=== PATIENT | female | born 1930 | race Caucasian/White ===

== ENCOUNTER → 2017-10-30 | Outpatient (CLI) | payer MEDICARE, BC ==
--- NOTE | 2017-10-30 11:38 | Diagnostic Imaging Report ---
EXAM: DXA BONE DENSITY INDICATIONS: Treated for osteoporosis. COMPARISON: None. FINDINGS: Left femoral neck bone mineral density (BMD) (g/cm2):0.686 Femur T-score (standard deviation relative to young adult mean BMD): -1.5 Femur Z-score (standard deviation relative to age-matched control group):1.1 Lumbar bone mineral density (BMD) (g/cm2):0.983 Lumbar T-score (standard deviation relative to young adult mean BMD): -0.6 Lumbar Z-score (standard deviation relative to age-matched control group):2.3 CONCLUSION: WHO bone mineral classification: Low bone mass (osteopenia). World Health Organization Classification: *The Z-score is provided for informational purposes. The T-score is preferable for clinical decisions. RECOMMENDATIONS: Normal \T\ Osteopenia:Calcium supplementation, daily multiple vitamins, and adequate exercise as preventive measures against osteoporosis. Osteoporosis \T\ Severe Osteoporosis:In addition to the above, pharmacologic therapy. Dictated by: Gumaro Gallego M.D. on 10/30/2017 at 11:40 Electronically approved by: Gumaro Gallego M.D. on 10/30/2017 at 11:40
== END ==
LOC: DX 10:37 → EDBD 11:00
DX: M81.0 Age-related osteoporosis without current pathological fracture (principal)
CPT/HCPCS: 77080

== ENCOUNTER → 2018-08-22 | Outpatient (CLI) | payer MEDICARE, BC ==
--- NOTE | 2018-08-22 13:53 | Diagnostic Imaging Report ---
Exam: Left hip 2 views History: Hip pain Comparison: None. Findings: No acute, displaced fracture or dislocation. Femoral head projects appropriately over the acetabulum. Mild joint space narrowing and marginal osteophytosis. Status post total right hip arthroplasty. Acetabular cup screw protrudes through the right pelvic sidewall. Regional skeletal structures are otherwise intact. Nonaggressive appearing sclerotic focus in the left iliac wing versus bowel contents. Impression: No acute osseous abnormality. 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 Signed by: Dr. Markus Marcelo M.D. on 08/22/2018 1:49 PM
== END ==
LOC: RAD 12:19
DX: M25.552 Pain in left hip (principal)

== ENCOUNTER → 2018-11-26 | Outpatient (CLI) | payer MEDICARE, BC ==
--- NOTE | 2018-11-26 15:57 | Diagnostic Imaging Report ---
EXAM: Cervical spine radiographs-7 views INDICATION: Neck pain. COMPARISON: None FINDINGS: BONES: Minimal retrolisthesis of C5 on C6. C1-C2 alignment is maintained. No acute displaced fractures. Vertebral body heights are preserved. DISCS: Mild degenerative disc changes at C5-C6 and C6-C7 with associated mild bony neural foraminal narrowing. JOINTS: Mild facet degenerative changes at C5-C6 and C6-C7. SOFT TISSUES: No prevertebral soft tissue edema. IMPRESSION: No acute radiographic abnormality. Mild degenerative disc and facet degenerative changes at C5-C6 and C6-C7 with associated mild bony neural foraminal narrowing. Signed by: Dr. Judy Dykes MD on 11/26/2018 3:54 PM
== END ==
LOC: RAD 13:16
DX: M54.2 Cervicalgia (principal)
CPT/HCPCS: 72050

== ENCOUNTER 2019-05-01 16:41 | Inpatient (IN) | payer BC, MEDICARE ==
[~2019-05-01] VITALS: Ht 157.5 cm; Wt 64.0 kg
--- OUTSIDE RECORDS SUMMARY | 2019-05-01 16:43 | XMS REPORT ---
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 Allergies, Adverse Reactions, Alerts This patient has no known allergies or adverse reactions. Medications This patient has no known medications. Results Test Description Test Time Test Comments Text Results Atomic Results Result Comments CERVICAL SPINE 4 OR 5 VIEWS 2018-11-26 15:49:00 [place] [address] Patient Name: SCARLET MATUTE MR #: [id number] : 1930 Age/Sex: 88/F Req #: [id number] Adm Physician: Ordered by: KAREL ALANIS MD Report #: [id number] Location: [facility] Room/Bed: Procedure: [id number] DX/CERVICAL SPINE 4 OR 5 VIEWS Exam Date: 11/26/18 Exam Time: 1410 REPORT STATUS: Signed EXAM: Cervical spine radiographs-7 views INDICATION: Neck pain. COMPARISON: None FINDINGS: BONES: Minimal retrolisthesis of C5 on C6. C1-C2 alignment is maintained. No acute displaced fractures. Vertebral body heights are preserved. DISCS: Mild degenerative disc changes at C5-C6 and C6-C7 with associated mild bony neural foraminal narrowing. JOINTS: Mild facet degenerative changes at C5-C6 and C6-C7. SOFT TISSUES: No prevertebral soft tissue edema. IMPRESSION: No acute radiographic abnormality. Mild degenerative disc and facet degenerative changes at C5-C6 and C6-C7 with associated mild bony neural foraminal narrowing. Signed by: Dr. Román Yu MD on 11/26/2018 3:54 PM Dictated By: ROMÁN YU MD 53 Transcribed By: SHAQUILLE on 11/26/18 COPY TO: KAREL ALANIS MD HIP LEFT 2-3 VW (+/- PELVIS) 2018-08-22 13:47:00 [place] [address] Patient Name: SCARLET MATUTE MR #: [id number] : 1930 Age/Sex: 88/F Req #: [id number] Adm Physician: Ordered by: KAREL ALANIS MD Report #: [id number] Location: [facility] Room/Bed: Procedure: [id number] DX/HIP LEFT 2-3 VW (+/- PELVIS) Exam Date: Exam Time: REPORT STATUS: Signed Exam: Left hip 2 views History: Hip pain Co mparison: None. Findings: No acute, displaced fracture or dislocation. Femoral head projects appropriately over the acetabulum. Mild joint space narrowing and marginal osteophytosis. Status post total right hip arthroplasty. Acetabular cup screw protrudes through the right pelvic sidewall. Regional skeletal structures are otherwise intact. Nonaggressive appearing sclerotic focus in the left iliac wing versus bowel contents. Impression: No acute osseous abnormality. 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 Signed by: Dr. Jamal Sanchez M.D. on 08/22/2018 1:49 PM Dictated By: JAMAL SANCHEZ MD 48 Transcribed By: SHAQUILLE on 08/22/181348 COPY TO: KAREL ALANIS MD BONE DXA DUAL ENERGY [place] [address] Patient Name: SCARLET MATUTE MR #: [id number] : 1930 Age/Sex: 87/F Req #: [id number] Adm Physician: Ordered by: KAREL ALANIS MD Report #: [id number] Location: DX Room/Bed: Procedure: [id number] DX/BONE DXA DUAL ENERGY Exam Date: Exam Time: REPORT STATUS: Signed EXAM: DXA BONE DENSITY INDICATIONS: Treated for osteoporosis. COMPARISON: None. FINDINGS: Left femoral neck bone mineral density (BMD) (g/cm2): 0.686 Femur T-score (standard deviation relative to young adult mean BMD): -1.5 Femur Z-score (standard deviation relative to age-matched control group): 1.1 Lumbar bone mineral density (BMD) (g/cm2): 0.983 Lumbar T-score (standard deviation relative to young adult mean BMD): -0.6 Lumbar Z-score (standard deviation relative to age-matched control group): 2.3 CONCLUSION: WHO bone mineral classification: Low bone mass (osteopenia). World Health Organization Classification: *The Z- score is provided for informational purposes. The T-score is preferable for clinical decisions. RECOMMENDATIONS: Normal T Osteopenia: Calcium supplementation, daily multiple vitamins, and adequate exercise as preventive measures against osteoporosis. Osteoporosis T Severe Osteoporosis: In addition to the above, pharmacologic therapy. Dictated by: Darryl Gallego M.D. on 10/30/2017 at 11:40 Electronically approved by: Darryl Gallego M.D. on 10/30/2017 at 11:40 Dictated By: DARRYL GALLEGO MD 1140 Transcribed By: YAHIR on 10/30/17 1140 COPY TO: KAREL ALANIS MD
[2019-05-01] MEDS ORDERED: SODIUM CHLORIDE 0.9% 500ML 500 ML IV ONE ×2 (18:15→21:24)
[2019-05-01 18:51] LABS: BILIRUBIN,URINE NEGATIVE (NEGATIVE); CLARITY,URINE SL CLOUDY (CLEAR); COLOR,URINE YELLOW (YELLOW); KETONES,URINE NEGATIVE (NEGATIVE); LEUKOCYTE ESTERASE ,URINE NEGATIVE (NEGATIVE); NITRITE,URINE NEGATIVE (NEGATIVE); PROTEIN,URINE DIPSTICK NEGATIVE (NEGATIVE); URINE UROBILINOGEN 0.2 mg/dL (0.2 - 1)
--- NOTE | 2019-05-01 18:51 | Diagnostic Imaging Report ---
Exam: Head CT without contrast History: Fall, balance Comparison studies: None Technique: Axial images were obtained from the skull base to the vertex. Coronal and sagittal images reconstructed from the axial data. Dose modulation, iterative reconstruction, and/or weight based adjustment of the mA/kV was utilized to reduce the radiation dose to as low as reasonably achievable. Radiation dose: Total DLP: 1030 mGy*cm. Estimated effective dose: DLP x 0.015 Intravenous contrast: None Findings: Scalp: No abnormalities. Bones: No fractures, blastic or lytic lesions. Brain sulci: Mildly prominent. Ventricles: Moderate compensatory dilatation. No hydrocephalus. Extra-axial spaces: No masses, no fluid collection. Parenchyma: No mass, acute hemorrhage or acute cortical vascular insults. A few scattered hypodensities in the supratentorial white matter are nonspecific but most compatible with chronic small vessel ischemic changes. Sellar/suprasellar region: No abnormalities. Craniocervical junction: Patent foramen magnum. No Chiari one malformation. Included paranasal sinuses: Clear. Middle ear mastoid cavities: Clear. Incidental findings: Atherosclerotic calcifications in the carotid siphons an in the intradural vertebral arteries. IMPRESSION: No acute abnormalities. Chronic findings: 1. Moderate generalized parenchyma volume loss. 2. Mild microvascular ischemic changes. Signed by: Dr. Markus Villarreal M.D. on 05/01/2019 6:48 PM
--- NOTE | 2019-05-01 18:59 | Diagnostic Imaging Report ---
History: Trauma, fall Comparison studies: Cervical spine CT 11/18/2018. Technique: Axial images were obtained through the cervical region.. Coronal and sagittal images reconstructed from the axial data.. Intravenous contrast: None Findings: Fractures: None. Soft tissue injuries: None. Atlantoaxial articulation: Intact. Alignment: Straightening of the usual cervical lordosis. No subluxations. Cervicomedullary junction: No abnormalities. The foramen magnum is patent. Soft tissues: No gross acute abnormalities. Vertebrae: No fractures, infection or neoplasm. Degenerative changes: Moderately degenerated C5-C6 and C6-C7 discs. Calcified central disc protrusion at C4-C5 and disc osteophyte complex at C5-C6 result in mild canal stenosis. Moderate canal stenosis at C6-C7 due to a disc osteophyte complex and ossified posterior longitudinal ligament. Advanced multilevel facet arthrosis. Multilevel uncovertebral facet arthrosis result in multilevel foraminal stenosis which is mild bilaterally at C2-C3, moderate right and mild left at C3-C4, mild bilaterally at C4-C5, and moderate bilaterally at C5-C6 and at C6-C7. IMPRESSION: 1. No acute cervical spine abnormalities. 2. Multilevel degenerative changes as described. Ligament, spinal cord and or vascular abnormalities cannot be excluded on the basis of this examination. Signed by: Dr. Markus Villarreal M.D. on 05/01/2019 6:56 PM
--- NOTE | 2019-05-01 19:07 | Diagnostic Imaging Report ---
Left hip with AP pelvis 3 - views HISTORY: Pain status post fall. COMPARISON: 08/22/2018. FINDINGS: Redemonstration of status post total right hip arthroplasty with bipolar prosthesis in adequate positioning without evidence of loosening. No acute displaced fracture. Degenerative changes of the abdomen lower lumbar spine. Soft tissue calcifications in the lateral left pelvis. IMPRESSION: No acute displaced fracture. Signed by: Dr. Etelvina Babin M.D. on 05/01/2019 7:04 PM
--- NOTE | 2019-05-01 19:09 | Diagnostic Imaging Report ---
EXAMINATION: CHEST SINGLE (NOT PORTABLE) INDICATION: Fall. COMPARISON: None FINDINGS: TUBES and LINES: None. LUNGS: Lungs are well inflated. Lungs are clear. There is no evidence of pneumonia or pulmonary edema. PLEURA: No pleural effusion or pneumothorax. HEART AND MEDIASTINUM: The cardiomediastinal silhouette is unremarkable. There are atherosclerotic calcifications within the aorta. BONES AND SOFT TISSUES: No acute osseous lesion. Soft tissues are unremarkable. UPPER ABDOMEN: No free air under the diaphragm. IMPRESSION: No acute thoracic abnormality. Signed by: Dr. Etelvina Babin M.D. on 05/01/2019 7:06 PM
[2019-05-01 19:28] LABS: BASOPHILS # (AUTO) 0.1 (0.0-0.1); BASOPHILS % 0.7 % (0.0-1.0); EOSINOPHILS # (AUTO) 0.2 (0.0-0.4); EOSINOPHILS % 2.5 % (0.0-6.0); HEMATOCRIT 43.2 % (34.2-44.1); HEMOGLOBIN 14.9 g/dL (12.0-16.0); LYMPHOCYTES # (AUTO) 2.2 (1.0-3.2); LYMPHOCYTES % 32.7 % (18.0-39.1); MEAN CORPUSCULAR HEMOGLOBIN 32.6 pg (28-32); MEAN CORPUSCULAR HGB CONC 34.5 g/dL (31-35); MEAN CORPUSCULAR VOLUME 94.5 fL (81-99); MONOCYTES # (AUTO) 0.8 (0.2-0.8); MONOCYTES % 12.1 % (4.4-11.3); NEUTROPHILS # (AUTO) 3.5 (2.1-6.9); NEUTROPHILS % 51.6 % (38.7-80.0); PLATELET COUNT 230 x10e3/uL (140-360); RED BLOOD COUNT 4.57 x10e6/uL (3.6-5.1); RED CELL DISTRIBUTION WIDTH 12.3 % (11.7-14.4)
[2019-05-01 19:41] LABS: INR 0.96; PARTIAL THROMBOPLASTIN TIME 24.2 seconds (23.8-35.5); PROTHROMBIN TIME 13.3 seconds (11.9-14.5)
[2019-05-01 19:47] LABS: AMORPHOUS SEDIMENT,URINE MODERATE (FEW); BACTERIA,URINE MODERATE /HPF; EPITHELIAL CELLS,URINE FEW /LPF
[2019-05-01 19:50] LABS: ALANINE AMINOTRANSFERASE 28 IU/L (0-55); ALBUMIN 3.7 g/dL (3.5-5.0); ALBUMIN/GLOBULIN RATIO 1.1 (0.8-2.0); ALKALINE PHOSPHATASE 34 IU/L (40-150); BLOOD UREA NITROGEN 19 mg/dL (7-26); BUN/CREATININE RATIO 25 (6-25); CALCIUM 10.8 mg/dL (8.4-10.2); CARBON DIOXIDE 24 mmol/L (22-29); CHLORIDE 98 mmol/L (98-107); CREATINE KINASE 53 IU/L (29-168); CREATININE, SERUM 0.77 mg/dL (0.57-1.11); EST GLOMERULAR FILTRATION RATE > 60 ML/MIN (60-); GLUCOSE 151 mg/dL (74-118); MAGNESIUM 1.7 MG/DL (1.3-2.1); SODIUM 137 mmol/L (136-145)
[2019-05-01 19:56] VITALS: BP 120/53
[2019-05-01 20:12] LABS: ERYTHROCYTE SEDIMENTATION RATE 21 mm/hr (0-20)
[2019-05-01] MEDS ORDERED: POTASSIUM CHLORIDE 20 MEQ TAB CR PO ONE (20:15)
[2019-05-01 22:37] VITALS: BP 141/68
--- NOTE | 2019-05-01 22:40 | NUR ---
Patient received via stretcher accompanied by daughter. Patient is AAO x 3. Patient had no complaints of pain. Respirations even and non-labored. Admission history obtained. Initial physical assessment performed. Fall precautions implemented. Patient instructed to call for assistance when needed. Call light within reach.
[2019-05-01 22:45] VITALS: BP 141/68
[2019-05-01 23:00] VITALS: BP 141/68
[2019-05-02] VITALS (7 sets, daily range): BP systolic 134–152; BP diastolic 67–79
--- NOTE | 2019-05-02 00:05 | NUR ---
Patient complained about pain to her left hip (01/08). Dr. Patel Klein notified. New order received for Tylenol 650 mg Q4H PRN.
[2019-05-02] MEDS ORDERED: GLUCOSAMINE1000 MG PO (00:28)
[2019-05-02] MEDS ORDERED: BIOTIN800 MCG PO (00:28)
[2019-05-02] MEDS ORDERED: VITAMIN D1000 UNI1 PO (00:28)
[2019-05-02] MEDS ORDERED: CYMBALTA30 MG PO (00:28)
[2019-05-02] MEDS ORDERED: B COMPLEX1 EACH (00:28)
[2019-05-02] MEDS ORDERED: CALCIUM CARBON500 MG PO (00:28)
[2019-05-02] MEDS ORDERED: HYDROCHLOROTHIA25 MG PO (00:28)
[2019-05-02] MEDS ORDERED: IBANDRONATE SO150 MG PO (00:28)
[2019-05-02] MEDS ORDERED: LORATADINE10 MG PO (00:28)
[2019-05-02] MEDS ORDERED: AMLODIPINE BESYL5 MG PO (00:28)
[2019-05-02] MEDS: ACETAMINOPHEN 325 MG TAB PO PRN ×2 (00:49→20:48)
[2019-05-02 02:49] LABS: CREATINE KINASE MB 1.1 ng/mL (0-5.0)
[2019-05-02 05:54] LABS: ALANINE AMINOTRANSFERASE 23 IU/L (0-55); ALBUMIN/GLOBULIN RATIO 1.1 (0.8-2.0); ALKALINE PHOSPHATASE 27 IU/L (40-150); ANION GAP 11.5 mmol/L (8-16); BLOOD UREA NITROGEN 17 mg/dL (7-26); BUN/CREATININE RATIO 25 (6-25); CALCIUM 9.3 mg/dL (8.4-10.2); CARBON DIOXIDE 26 mmol/L (22-29); CHLORIDE 106 mmol/L (98-107); CREATININE, SERUM 0.68 mg/dL (0.57-1.11); EST GLOMERULAR FILTRATION RATE > 60 ML/MIN (60-); GLUCOSE 132 mg/dL (74-118); POTASSIUM 3.5 mmol/L (3.5-5.1); SODIUM 140 mmol/L (136-145)
[2019-05-02] MEDS ORDERED: MINERAL OIL/PETROLAT/GLYCERI 6OZ BTL TOP PRN (09:15)
--- NOTE | 2019-05-02 12:39 | Diagnostic Imaging Report ---
EXAMINATION: MRI of the lumbar spine without contrast HISTORY: Low back pain, weakness, difficulty walking, worsening low back pain and sciatica for the last week COMPARISON: None available TECHNIQUE: Sagittal T1, T2, STIR; axial T2 and proton density. FINDINGS: It is assumed that there are 5 lumbar vertebrae. Curvature/Alignment: Right-sided curvature centered at L3-L4. Reversal of the lumbar lordosis. Grade 1 retrolisthesis at L2-L3 and L3-L4. Right lateral spondylolisthesis at L3-L4. Vertebrae: No evidence of recent fracture, infection, or neoplasm. Chronic endplate degenerative changes mainly at L5-S1. Conus: Normal, terminating at L1-L2 Cauda equina: Unremarkable. Lower thoracic: Unremarkable. Paraspinal soft tissues: Moderate to severe paraspinal musculature atrophy Degenerative changes: L1-L2: Decreased disc height and T2 signal intensity. No stenoses. L2-L3: Decreased disc height and T2 signal intensity, asymmetric right disc bulge. No stenoses. L3-L4: Symmetric disc bulge and superimposed 8 mm AP diameter inferiorly migrated left subarticular disc extrusion which is effacing the left lateral recess and likely compressing the traversing left L4 nerve root. Bilateral facet arthrosis. Mild foraminal stenosis on the left. L4-L5: Asymmetric right disc bulge, right marginal lateral endplate osteophytes and bilateral facet arthrosis. Mild canal and right foraminal narrowing. L5-S1: Decreased disc height and T2 signal intensity, marginal endplate osteophytes and bilateral facet arthrosis. Moderate right and mild left foraminal stenoses. IMPRESSION: 1. Left subarticular inferiorly migrated disc herniation at L3-L4 may be compressing the traversing left L4 nerve root. 2. Mild degenerative foraminal stenosis on the left at L3-L4, on the right at L4-L5 and moderate on the right at L5-S1. 3. Lumbar dextroscoliosis with apex at L3-L4 and grade 1 retrolisthesis at this same level. Signed by: Dr. Micaela Celeste M.D. on 05/02/2019 12:35 PM
--- NOTE | 2019-05-02 13:56 | NUR ---
consult called to Dr. Wilhelm spoke to Tia
[2019-05-02 14:48] LABS: CREATINE KINASE MB 1.2 ng/mL (0-5.0)
--- NOTE | 2019-05-02 16:55 | Consultation ---
DATE OF CONSULTATION: 05/01/2019 REASON FOR CONSULTATION: Severe left leg pain and inability to ambulate. HISTORY OF PRESENT ILLNESS: The patient is an 88-year-old, healthy and energetic woman without any significant past medical history, who presents with a 2-year history of low back and intermittent leg pain, who has become intolerable over the past month. The patient is no longer able to ambulate except by heavily relying on a walker. She feels that her brain is not communicating with her left leg and states that she cannot move it adequately. The pain radiates down the left leg to the knee. Her knee has buckled and she has followed on one occasion. PHYSICAL EXAMINATION: On examination, the patient is comfortable and lying supine, but develops pain with sitting and standing. She can only take one step with assistance. Sensation to light touch and pinprick is altered over the left knee. Deep tendon reflexes are absent in both Achilles and patellar tendons. Plantar responses are flexor. There is significant weakness of the left quadriceps and hip flexors on the left. IMAGING STUDIES: MRI of the lumbar spine reveals a large left L3-L4 disk herniation with inferior migration of the extruded disk fragment into the left L4 lateral recess. This produces a severe left L4 radiculopathy. I recommend left L3-L4 laminotomy, medial facetectomy, and microsurgical diskectomy. The risks of infection, bleeding, nerve root injury, CSF leakage, persistent or worsening pain, weakness and numbness, and the possibility of recurrent disk herniation were explained to the patient and her two daughters. Informed consent was obtained for surgery. We planned to proceed with surgery on Sunday afternoon. Riley Wilhelm MD PP/MODL /[id number]
[2019-05-02] MEDS: LORATADINE 10 MG TAB PO SCH (20:48)
[2019-05-03] VITALS (8 sets, daily range): BP systolic 134–163; BP diastolic 59–75
[2019-05-03] MEDS: AMLODIPINE BESYLATE 5 MG TAB PO SCH (09:57)
[2019-05-03] MEDS: DULOXETINE HCL 30 MG DELAYED RELEASE PO SCH (09:57)
[2019-05-03] MEDS: HYDROCHLOROTHIAZIDE 25 MG TAB PO SCH (09:57)
[2019-05-03] MEDS: ACETAMINOPHEN 325 MG TAB PO PRN (10:26)
[2019-05-03 15:23] LABS: ANION GAP 12.9 mmol/L (8-16); BLOOD UREA NITROGEN 18 mg/dL (7-26); BUN/CREATININE RATIO 24 (6-25); CALCIUM 9.5 mg/dL (8.4-10.2); CARBON DIOXIDE 28 mmol/L (22-29); CHLORIDE 100 mmol/L (98-107); CREATININE, SERUM 0.76 mg/dL (0.57-1.11); EST GLOMERULAR FILTRATION RATE > 60 ML/MIN (60-); GLUCOSE 219 mg/dL (74-118); POTASSIUM 3.9 mmol/L (3.5-5.1); SODIUM 137 mmol/L (136-145)
[2019-05-03] MEDS: CEFTRIAXONE SOD 1 GM/NS 50 ML 50 ML IV SCH (15:56)
[2019-05-03] MEDS ORDERED: ACETAMINOPHEN 325 MG TAB PO SCH (19:00)
[2019-05-03] MEDS: LORATADINE 10 MG TAB PO SCH (21:06)
[2019-05-04] VITALS (8 sets, daily range): BP systolic 147–163; BP diastolic 70–83
[2019-05-04] MEDS: CEFTRIAXONE SOD 1 GM/NS 50 ML 50 ML IV SCH ×2 (01:35→14:57)
[2019-05-04 05:35] LABS: BASOPHILS # (AUTO) 0.1 (0.0-0.1); BASOPHILS % 0.8 % (0.0-1.0); EOSINOPHILS # (AUTO) 0.3 (0.0-0.4); HEMATOCRIT 39.9 % (34.2-44.1); HEMOGLOBIN 13.8 g/dL (12.0-16.0); LYMPHOCYTES # (AUTO) 2.3 (1.0-3.2); LYMPHOCYTES % 36.4 % (18.0-39.1); MEAN CORPUSCULAR HEMOGLOBIN 33.1 pg (28-32); MEAN CORPUSCULAR HGB CONC 34.6 g/dL (31-35); MEAN CORPUSCULAR VOLUME 95.7 fL (81-99); MONOCYTES # (AUTO) 0.6 (0.2-0.8); NEUTROPHILS # (AUTO) 3.1 (2.1-6.9); NEUTROPHILS % 48.5 % (38.7-80.0); PLATELET COUNT 226 x10e3/uL (140-360); RED BLOOD COUNT 4.17 x10e6/uL (3.6-5.1); RED CELL DISTRIBUTION WIDTH 12.5 % (11.7-14.4)
[2019-05-04 06:06] LABS: ANION GAP 12.2 mmol/L (8-16); BLOOD UREA NITROGEN 14 mg/dL (7-26); BUN/CREATININE RATIO 24 (6-25); CARBON DIOXIDE 25 mmol/L (22-29); CHLORIDE 104 mmol/L (98-107); CREATININE, SERUM 0.58 mg/dL (0.57-1.11); EST GLOMERULAR FILTRATION RATE > 60 ML/MIN (60-); GLUCOSE 116 mg/dL (74-118); POTASSIUM 3.2 mmol/L (3.5-5.1); SODIUM 138 mmol/L (136-145)
[2019-05-04] MEDS: HYDROCHLOROTHIAZIDE 25 MG TAB PO SCH (08:28)
[2019-05-04] MEDS: AMLODIPINE BESYLATE 5 MG TAB PO SCH (08:28)
[2019-05-04] MEDS: DULOXETINE HCL 30 MG DELAYED RELEASE PO SCH (08:28)
[2019-05-04] MEDS ORDERED: POTASSIUM CHLORIDE 10MEQ EA PO NR ×2 (10:15→12:15)
[2019-05-04] MEDS ORDERED: POTASSIUM CHLORIDE 20 MEQ TAB CR PO NR ×3 (15:45→19:30)
[2019-05-04] MEDS: ACETAMINOPHEN 325 MG TAB PO SCH (20:00)
[2019-05-04] MEDS: LORATADINE 10 MG TAB PO SCH (21:11)
--- NOTE | 2019-05-04 21:12 | NUR ---
Given 40 meq of K PO @ 2030 today.
[2019-05-05] VITALS (9 sets, daily range): BP systolic 139–164; BP diastolic 67–74
[2019-05-05] MEDS: CEFTRIAXONE SOD 1 GM/NS 50 ML 50 ML IV SCH ×3 (03:45→15:35)
[2019-05-05 05:55] LABS: BASOPHILS # (AUTO) 0.1 (0.0-0.1); BASOPHILS % 1.1 % (0.0-1.0); EOSINOPHILS # (AUTO) 0.3 (0.0-0.4); EOSINOPHILS % 4.5 % (0.0-6.0); HEMATOCRIT 41.1 % (34.2-44.1); HEMOGLOBIN 13.5 g/dL (12.0-16.0); LYMPHOCYTES # (AUTO) 2.4 (1.0-3.2); LYMPHOCYTES % 36.8 % (18.0-39.1); MEAN CORPUSCULAR HGB CONC 32.8 g/dL (31-35); MEAN CORPUSCULAR VOLUME 97.4 fL (81-99); MONOCYTES # (AUTO) 0.7 (0.2-0.8); MONOCYTES % 11.1 % (4.4-11.3); PLATELET COUNT 223 x10e3/uL (140-360); RED BLOOD COUNT 4.22 x10e6/uL (3.6-5.1); RED CELL DISTRIBUTION WIDTH 12.6 % (11.7-14.4)
[2019-05-05 06:05] LABS: INR 0.98; PROTHROMBIN TIME 13.5 seconds (11.9-14.5)
[2019-05-05 06:06] LABS: PARTIAL THROMBOPLASTIN TIME 24.3 seconds (23.8-35.5)
[2019-05-05 06:14] LABS: ALANINE AMINOTRANSFERASE 21 IU/L (0-55); ALBUMIN 3.2 g/dL (3.5-5.0); ALKALINE PHOSPHATASE 27 IU/L (40-150); ANION GAP 14.2 mmol/L (8-16); BLOOD UREA NITROGEN 15 mg/dL (7-26); BUN/CREATININE RATIO 24 (6-25); CARBON DIOXIDE 22 mmol/L (22-29); CHLORIDE 110 mmol/L (98-107); CREATININE, SERUM 0.62 mg/dL (0.57-1.11); EST GLOMERULAR FILTRATION RATE > 60 ML/MIN (60-); GLUCOSE 133 mg/dL (74-118); POTASSIUM 4.2 mmol/L (3.5-5.1); SODIUM 142 mmol/L (136-145)
--- NOTE | 2019-05-05 07:00 | NUR ---
BEDSIDE SHIFT REPORT RECEIVED FROM THE ETYMOLOGY PROFESSOR RN. EDUCATED PT ABOUT FALL PRECAUTIONS. BED IS LOW AND LOCKED. SIDE RAILS X2. CALL LIGHT WITH IN EASY REACH. BED ALARM IS ON. INSTRUCTED PT TO USE CALL LIGHT FOR ANY NEEDS. PT VERBALIZED UNDERSTANDING. PT DENIES NEEDS AT THIS TIME.
--- NOTE | 2019-05-05 08:00 | NUR ---
PT IS ON NPO. DAUGHTER AT BEDSIDE. PT DENIES NEEDS AT THIS TIME.
[2019-05-05] MEDS: HYDROCHLOROTHIAZIDE 25 MG TAB PO SCH (09:00)
[2019-05-05] MEDS: AMLODIPINE BESYLATE 5 MG TAB PO SCH (09:00)
[2019-05-05] MEDS: DULOXETINE HCL 30 MG DELAYED RELEASE PO SCH (09:00)
[2019-05-05] MEDS ORDERED: POTASSIUM CHLORIDE 20MEQ/100ML 100 ML IV ONE (11:00)
[2019-05-05] MEDS ORDERED: THROMBIN FOR SOLN 5,000 UNIT VIAL ONE (11:49)
[2019-05-05] MEDS ORDERED: BUPIVACAINE 0.5%/EPI 30 ML SDV INJ ONE (11:49)
[2019-05-05] MEDS ORDERED: BACITRACIN 50,000 UNIT VIAL ONE (11:49)
[2019-05-05] MEDS ORDERED: SODIUM CHLORIDE 0.9% 250ML 250 ML ONE (11:55)
[2019-05-05] MEDS ORDERED: LIDOCAINE HCL (LTA) 4 ML SOLN ONE (12:09)
[2019-05-05] MEDS ORDERED: ACETAMINOPHEN 1000 MG/100 ML 100 ML IV ONE (12:09)
--- NOTE | 2019-05-05 14:00 | NUR ---
PT OFF UNIT FOR PROCEDURE IN SAFE CONDITION.
[2019-05-05] MEDS ORDERED: SUGAMMADEX SODIUM 200 MG/2 ML VIAL IV ONE (15:11)
[2019-05-05] MEDS ORDERED: ONDANSETRON HCL INJ 2MG/ML 2ML 2 MG/ML VIAL IV PRN (15:45)
[2019-05-05] MEDS ORDERED: PROMETHAZINE HCL (IM) 25 MG/ML VIAL IM PRN (15:45)
[2019-05-05] MEDS ORDERED: OXYCODONE/ACETAMINOPHEN 5-325 1 EACH TABLET PO PRN (15:45)
[2019-05-05] MEDS ORDERED: MAGNESIUM/ALUMINUM/SIMETHICONE 30 ML UDC PO PRN (15:45)
[2019-05-05] MEDS ORDERED: MORPHINE SULFATE 5 MG/ML VIAL IV PRN (15:45)
[2019-05-05] MEDS ORDERED: ACETAMINOPHEN 325 MG TAB PO PRN (15:45)
[2019-05-05] MEDS ORDERED: FENTANYL CITRATE/PF 100MCG/2 ML INJ ONE ×2 (16:07→18:27)
--- NOTE | 2019-05-05 17:10 | NUR ---
PT BACK TO UNIT AFTER PROCEDURE. PT HAD SKIN TEAR RIGHT FORE ARM WHILE TURNING AT THE TIME OF THE SURGERY. PER THE REPORT FROM PACU. PT CAME WITH DRESSING ON RIGHT HAND. PT FAMILY AT BEDSIDE. BED IS LOW AND LOCKED. CALL LIGHT WITH IN EASY REACH. INSTRUCTED PT TO CALL FOR ANY NEEDS.
[2019-05-05] MEDS: MORPHINE SULFATE 2 MG/ML SYR 1ML IV PRN (17:20)
[2019-05-05] MEDS: LACTATED RINGER'S 1,000 ML IV SCH (17:20)
[2019-05-05] MEDS ORDERED: GLYCOPYRROLATE INJ 1MG/ 5 ML SYR ONE (18:12)
[2019-05-05] MEDS ORDERED: PROPOFOL IV EMULSION 10 MG/ML 20 ML VIAL ONE (18:12)
[2019-05-05] MEDS ORDERED: DEXAMETHASONE SOD PHOS INJ 4 MG/ML VIAL ONE (18:12)
[2019-05-05] MEDS ORDERED: ONDANSETRON HCL INJ 2MG/ML 2ML 2 MG/ML VIAL ONE (18:12)
[2019-05-05] MEDS ORDERED: NEOSTIGMINE 5 MG/5ML SYR ONE (18:12)
[2019-05-05] MEDS ORDERED: SEVOFLURANE INHAL SOLN 250 ML PEN BTL ONE (18:12)
[2019-05-05] MEDS ORDERED: ROCURONIUM BROMIDE 10 MG/ML 5ML VIAL ONE (18:12)
[2019-05-05] MEDS ORDERED: LIDOCAINE HCL 2% LOCAL INJ 5 ML SDV VIAL INJ ONE (18:12)
[2019-05-05] MEDS: ACETAMINOPHEN 325 MG TAB PO SCH (19:00)
--- NOTE | 2019-05-05 19:00 | NUR ---
BEDSIDE SHIFT REPORT GIVEN TO THE AREA INTELLIGENCE TECHNICIAN RN. PT DENIED FURTHER NEEDS. PT FAMILY AT BEDSIDE.
[2019-05-05] MEDS: LORATADINE 10 MG TAB PO SCH (20:36)
[2019-05-05] MEDS: CEFAZOLIN SOD 1 GM/NS 50ML 50 ML IV SCH (20:36)
[2019-05-05] MEDS: ZOLPIDEM TARTRATE 5 MG TAB PO PRN (20:40)
--- NOTE | 2019-05-05 23:11 | Operative Report ---
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 PROCEDURES: Left L3-4 laminotomy, medial facetectomy, and microsurgical diskectomy, [address]. ANESTHESIA: General. INDICATIONS: The patient is an 88-year-old woman, who presents with a large left L3-4 disk herniation with inferior migration of the extruded disk fragment into the L4 lateral recess, symptomatic with severe left L4 radiculopathy such that she is unable to walk. She was taken to the operating room for microsurgical diskectomy. PROCEDURE IN DETAIL: After induction of general anesthesia, the patient was placed on the operating table in prone position over Luiz frame. The lumbar region was prepped and draped in sterile fashion. A preoperative x-ray was obtained. A small midline incision was created. Lumbar fascia was opened to the left of midline and subperiosteal dissection was carried out to expose the left side of the L3 and L4 lamina and the medial aspect of the L3-4 facet joint. A second x-ray confirmed correct localization. The operating microscope was brought in. A high-speed drill equipped, kareem bur was used to drill the inferior aspect of lamina of L3 and superior rim of the lamina of L4 and the medial aspect of the L3-4 facet joints. The markedly hypertrophic ligamentum flavum was resected and the dural sac and L4 nerve roots were exposed. The epidural veins lateral to the nerve root were bipolar coagulated and divided with micro scissors. The extruded disk material came into view. A ball probe was passed into the ventral epidural space and directed inferiorly into the L4 lateral recess and the edge of the extruded disk material was retrieved and grasped with a micropituitary rongeur. A large fragment of disk was delivered out from the L4 lateral recess medially, decompressing the nerve roots. The opening into the posterior longitudinal ligament and posterior annulus of disk was enlarged with a #11 blade. Loose contents of the L3-4 disk were thoroughly evacuated with curettes and pituitary rongeurs. The subligamentous portion of the disk herniation was retrieved and removed. Meticulous hemostasis was secured. The wound was thoroughly irrigated with bacitracin solution. The lumbar fascia was closed with 0 Vicryl suture. Subcutaneous layer was closed with 2-0 Vicryl sutures. The skin was closed with 3-0 Monocryl sutures in subcuticular fashion. Steri-Strips and dressing were applied. The patient was awakened, extubated, and taken to postanesthesia care unit in stable condition. No intraoperative complications were encountered. ESTIMATED BLOOD LOSS: 10 mL. Riley Wilhelm MD PP/JAQUELINE /[id number]
[2019-05-06] VITALS (8 sets, daily range): BP systolic 118–153; BP diastolic 57–74
[2019-05-06] MEDS: LACTATED RINGER'S 1,000 ML IV SCH ×3 (00:29→18:00)
[2019-05-06 05:39] LABS: ANION GAP 12.7 mmol/L (8-16); BLOOD UREA NITROGEN 20 mg/dL (7-26); BUN/CREATININE RATIO 29 (6-25); CALCIUM 8.5 mg/dL (8.4-10.2); CARBON DIOXIDE 22 mmol/L (22-29); CHLORIDE 108 mmol/L (98-107); EST GLOMERULAR FILTRATION RATE > 60 ML/MIN (60-); GLUCOSE 229 mg/dL (74-118); POTASSIUM 4.7 mmol/L (3.5-5.1); SODIUM 138 mmol/L (136-145)
[2019-05-06] MEDS: CEFAZOLIN SOD 1 GM/NS 50ML 50 ML IV SCH ×2 (05:46→14:14)
--- NOTE | 2019-05-06 07:00 | NUR ---
BEDSIDE SHIFT REPORT RECEIVED FROM THE WARP WORKER RN. EDUCATED PT ABOUT FALL PRECAUTIONS. BED IS LOW AND LOCKED. SIDE RAILS X2. BED ALARM IS ON. CALL LIGHT WITH IN EASY REACH. INSTRUCTED PT TO USE CALL LIGHT FOR ANY NEEDS. PT VERBALIZED UNDERSTANDING. PT DENIES NEEDS AT THIS TIME.
[2019-05-06] MEDS: DULOXETINE HCL 30 MG DELAYED RELEASE PO SCH (09:40)
[2019-05-06] MEDS: AMLODIPINE BESYLATE 5 MG TAB PO SCH (09:40)
[2019-05-06] MEDS: HYDROCHLOROTHIAZIDE 25 MG TAB PO SCH (09:40)
[2019-05-06] MEDS: MORPHINE SULFATE 2 MG/ML SYR 1ML IV PRN (09:40)
--- NOTE | 2019-05-06 13:11 | NUR ---
IMM letter delivered and explained to pt and daughter at bedside. They verbalized understanding. States they are on board with Dr. Klein's plan for SNF when accepted. Signed copy placed in chart. Copy to pt's daughter.
--- NOTE | 2019-05-06 13:37 | NUR ---
SIGNED CHOICE FOR [facility], FILED IN CHART, COMPLETED PASRR AND FAXED CLINICALS TO [phone]
[2019-05-06] MEDS: CEFTRIAXONE SOD 1 GM/NS 50 ML 50 ML IV SCH (15:00)
--- NOTE | 2019-05-06 15:43 | NUR ---
WOUNDCARE CONSULT 88 YO HX OF DIZZINESS FALLS AND WEAKNESS RENÉE 20 ON CONSERVATIVE PUP AND ALTERNATING PRESSURE SURFACE LABS: WBC- 6.50,HGB- 13.5, GLUCOSE -229 SKIN ASSESSMENT COMPLETE PATIENTS PRESENTS WITH LARGE SKIN TEAR AREA 7CMX 5CMX .1CM SKIN IS PULLED TO RESURFACE AREA AND IS STERI STRIPED TO SECURE EDGES COLLAGEN DRESSING IS PLACED ON OPEN REMAINING AREAS RECOMMENDATIONS: NURSING TO CONTINUE TO PROTECT AND OFFLOAD AND ASSIST WITH Q 2 HR TURNS NURSING TO CONTINUE TO MAINTAIN CONSERVATIVE PUP STATUS NURSING TO PROTECT AND MONITOR STERI STRIP TO RT FORE ARM ALLOW STRIPS TO FALL NATURALLY NURSING TO APPLY EVERY OTHER DAY FIBRACOL (COLLAGEN ) TO OPEN AREAS AROUND RT FORE ARM SKIN TEAR COVER WITH FOAM OR SOFT ERICK WRAP WITH KERLIX SECURE WITH TAPE Addendum: 05/06/19 at 1601 by Ken Chanel RN Amended: Links added.
[2019-05-06] MEDS: ACETAMINOPHEN 325 MG TAB PO SCH (18:25)
--- NOTE | 2019-05-06 19:00 | NUR ---
BEDSIDE SHIFT REPORT GIVEN TO THE LOGGING SPECIALIST RN . PT DENIED FURTHER NEEDS.
--- NOTE | 2019-05-06 19:25 | NUR ---
patient received. Patient is AAOx3, resting in bed. resp even and unlabored. no acute distress noted at this time. tele in place. call light within reach. bed low/locked. continue to monitor closely
[2019-05-06] MEDS: LORATADINE 10 MG TAB PO SCH (20:49)
[2019-05-06] MEDS: ZOLPIDEM TARTRATE 5 MG TAB PO PRN (20:49)
[2019-05-07 00:46] VITALS: BP 124/78
[2019-05-07] MEDS: CEFTRIAXONE SOD 1 GM/NS 50 ML 50 ML IV SCH (01:35)
[2019-05-07] MEDS: LACTATED RINGER'S 1,000 ML IV SCH ×2 (01:35→09:20)
--- NOTE | 2019-05-07 07:00 | NUR ---
RECEIVED PATIENT AWAKE RESTING IN BED NO S/S OF DISTRESS. BED LOW, WHEELS LOCKED, SIDE RAILS X2. CALL LIGHT IN REACH WILL CONTINUE TO MONITOR PATIENT.
[2019-05-07 07:04] VITALS: BP 157/83
--- NOTE | 2019-05-07 07:36 | NUR ---
LONGTERM FACILITY DISCHARGE INFORMATION PATIENT HAS BEEN ACCEPTED TO: NAME: HEMANT NICOLE ADDRESS: [facility] ACCEPTING MD: ZEKE ROOM:212 B NURSE CALL REPORT TO: [phone] IMM SIGNED AND OBTAINED (if applicable): YES THE FOLLOWING DOCUMENTS MUST ACCOMPANY PATIENT FOR TRANSFER: COPIED CHART: CLINICALS
[2019-05-07 08:00] VITALS: BP 150/78
[2019-05-07] MEDS: HYDROCHLOROTHIAZIDE 25 MG TAB PO SCH (09:09)
[2019-05-07] MEDS: AMLODIPINE BESYLATE 5 MG TAB PO SCH (09:09)
[2019-05-07] MEDS: DULOXETINE HCL 30 MG DELAYED RELEASE PO SCH (09:09)
[2019-05-07 09:15] VITALS: BP 150/78
--- NOTE | 2019-05-07 10:13 | NUR ---
REPORT GIVEN TO SALTY LOPEZ AT [facility]. SUMMARY OF CARE PROVIDED.
[2019-05-07] MEDS ORDERED: NORCO 7.5-3251 EACH PO (10:25)
--- NOTE | 2019-05-07 11:47 | NUR ---
PATIENT DISCHARGED FROM FACILITY. PATIENT GATHERED ALL PERSONAL BELONGINGS, DISCHARGE INSTRUCTIONS, AND FOLLOW UP INFORMATION. LEFT UNIT IN [facility] AT [facility] AND WENT TO [facility] VIA AMBULANCE. NO SIGNS OF DISTRESS WHEN LEAVING FACILITY.
[2019-05-07 12:00] VITALS: BP 138/72
== END 2019-05-07 11:47 | DRG 520 ==
LOC: ER 16:41 → ERHOLD 21:36 → MED/SURG2 22:10 → OBSVTOIN 05-04 12:39
PROC: 0SB20ZZ Excision of Lumbar Vertebral Disc, Open Approach (ICD-10-PCS; 2019-05-05)
PROC: 00NY0ZZ Release Lumbar Spinal Cord, Open Approach (ICD-10-PCS; principal; 2019-05-05 14:30)
DX: M51.16 Intervertebral disc disorders with radiculopathy, lumbar region (principal); F41.9 Anxiety disorder, unspecified; I11.0 Hypertensive heart disease with heart failure; I50.9 Heart failure, unspecified; E87.6 Hypokalemia; G89.29 Other chronic pain
CPT/HCPCS: 36415; 70450; 71045; 72020; 72125; 72148; 80048; 80053; 81001; 82550; 82553; 82948; 83735; 83880; 84443; 84484; 85025; 85610; 85651; 85730; 87086; 88304; 93005; 97139; 99284; G0378; J0690; J0696; J1100; J2001; J2270; J2405; J2550; J3010; J3480; J7040; J7050; J7121

== ENCOUNTER 2019-08-18 16:37 | Inpatient (IN) | payer MEDICARE, OTHER ==
[~2019-08-18] VITALS: Ht 157.5 cm; Wt 65.5 kg
[~2019-08-18 16:37] MED LIST: AMLODIPINE BESYL5 MG PO; B COMPLEX1 EACH; BIOTIN800 MCG PO; CALCIUM CARBON500 MG PO; CYMBALTA30 MG PO; GLUCOSAMINE1000 MG PO; HYDROCHLOROTHIA25 MG PO; IBANDRONATE SO150 MG PO; LORATADINE10 MG PO; NORCO 7.5-3251 EACH PO; VITAMIN D1000 UNI1 PO
--- NOTE | 2019-08-18 18:05 | Diagnostic Imaging Report ---
CT BRAIN WO HISTORY: Multiple falls COMPARISON: Head CT 05/01/2019 Technique: Noncontrast axial scans were obtained from skull base to the vertex. Coronal and sagittal reconstructions obtained from the axial data. One or more of the following dose reduction techniques were used: Automated exposure control, adjustment of the mA and/or kV according to patient size, and/or utilization of iterative reconstruction technique. DISCUSSION: Scalp/Skull: Unremarkable. Brain sulci: Mildly prominent. Ventricles: Compensatory dilatation. Extra-axial spaces: No masses or fluid collections. Carotid siphon calcifications are present. Parenchyma: Mild to moderate bilateral deep white matter hypodensity is likely chronic microvascular ischemic change. Otherwise, no masses, hemorrhage, or large vascular territory acute infarct. Dural sinuses: No abnormal densities. Sellar/Suprasellar region: Intact. Skull base: Intact. Incidental findings: Minimal right sphenoid sinus mucosal thickening. IMPRESSION: 1. No acute intracranial abnormalities. 2. Mild to moderate supratentorial chronic microvascular ischemic change. Generalized cerebral volume loss. Signed by: Dr. Ernie Farfan M.D. on 08/18/2019 6:02 PM
[2019-08-18 18:20] LABS: BASOPHILS # (AUTO) 0.1 (0.0-0.1); BASOPHILS % 0.5 % (0.0-1.0); EOSINOPHILS # (AUTO) 0.1 (0.0-0.4); EOSINOPHILS % 1.5 % (0.0-6.0); HEMATOCRIT 39.4 % (34.2-44.1); HEMOGLOBIN 13.7 g/dL (12.0-16.0); LYMPHOCYTES % 20.7 % (18.0-39.1); MEAN CORPUSCULAR HEMOGLOBIN 32.2 pg (28-32); MEAN CORPUSCULAR HGB CONC 34.8 g/dL (31-35); MEAN CORPUSCULAR VOLUME 92.5 fL (81-99); MONOCYTES % 10.4 % (4.4-11.3); NEUTROPHILS # (AUTO) 6.2 (2.1-6.9); NEUTROPHILS % 66.3 % (38.7-80.0); PLATELET COUNT 255 x10e3/uL (140-360); RED BLOOD COUNT 4.26 x10e6/uL (3.6-5.1); RED CELL DISTRIBUTION WIDTH 12.7 % (11.7-14.4)
[2019-08-18 18:28] LABS: INR 0.96; PROTHROMBIN TIME 13.4 seconds (11.9-14.5)
[2019-08-18 18:29] LABS: PARTIAL THROMBOPLASTIN TIME 24.1 seconds (23.8-35.5)
[2019-08-18 18:39] LABS: ALBUMIN 3.5 g/dL (3.5-5.0); ANION GAP 18.2 mmol/L (8-16); CALCIUM 12.2 mg/dL (8.4-10.2); CREATININE, SERUM 1.22 mg/dL (0.57-1.11); MAGNESIUM 1.7 MG/DL (1.3-2.1); POTASSIUM 3.2 mmol/L (3.5-5.1)
--- NOTE | 2019-08-18 18:40 | NUR ---
incontinence care provided for urine for patient. Patient given clean gown and fresh linens.
[2019-08-18 18:45] LABS: CREATINE KINASE MB 2.1 ng/mL (0-5.0)
[2019-08-18 18:57] LABS: CLARITY,URINE SL CLOUDY (CLEAR); COLOR,URINE YELLOW (YELLOW); LEUKOCYTE ESTERASE ,URINE TRACE (NEGATIVE)
[2019-08-18 18:58] LABS: BILIRUBIN,URINE NEGATIVE (NEGATIVE); KETONES,URINE NEGATIVE (NEGATIVE); NITRITE,URINE NEGATIVE (NEGATIVE); PROTEIN,URINE DIPSTICK NEGATIVE (NEGATIVE); URINE UROBILINOGEN 0.2 mg/dL (0.2 - 1)
--- NOTE | 2019-08-18 19:04 | NUR ---
report given to Rodrick OLIVARES
[2019-08-18] MEDS ORDERED: SODIUM CHLORIDE FLUSH 10 ML SYR INJ PRN (19:15)
[2019-08-18] MEDS ORDERED: ONDANSETRON HCL INJ 2MG/ML 2ML 2 MG/ML VIAL IV PRN (19:15)
[2019-08-18] MEDS ORDERED: SODIUM CHLORIDE 0.9% 500ML 500 ML IV STA (19:18)
--- NOTE | 2019-08-18 19:25 | Diagnostic Imaging Report ---
EXAM: CHEST SINGLE (PORTABLE) DATE: 08/18/2019 4:48 PM INDICATION: Fall ^ERMD ORDER ^[id number] ^[id number] ^Y COMPARISON: Chest x-ray, 05/01/2019 FINDINGS: Lines and tubes: None Heart size normal. No focal pulmonary opacity, pleural effusion or pneumothorax. Upper abdomen unremarkable. No acute bony abnormality is visualized. IMPRESSION: No evidence for acute disease or significant change Signed by: Dr. Pop Tate M.D. on 08/18/2019 7:23 PM
[2019-08-18] MEDS ORDERED: HYDRALAZINE HCL 20 MG/ML VIAL IV ONE (19:30)
--- NOTE | 2019-08-18 19:30 | NUR ---
TO ROOM TO ASSESS PATIENT. HEART RHYTHM NOTED IRREGULAR. POST HOLE DIGGER INFORMED, EKG ORDERED.
--- NOTE | 2019-08-18 19:40 | NUR ---
EKG PERFORMED. EKG TO VIBHA RIVERA, NO NEW ORDERS AT THIS TIME.
[2019-08-18 20:26] LABS: BACTERIA,URINE MANY /HPF
--- NOTE | 2019-08-18 21:59 | NUR ---
HEART RHYTHM CONTINUES TO BE IRREGULAR. EKG REPEATED AND GIVEN TO MD AT THIS TIME.
--- NOTE | 2019-08-18 23:18 | NUR ---
pt placed on telemetry box# [id number]
[2019-08-19] VITALS (11 sets, daily range): BP systolic 126–180; BP diastolic 63–84
--- NOTE | 2019-08-19 | NUR ---
INFORMED THAT PT REMAINS IN AFIB C HR 104. NEW ORDER FOR JOSE F RECEIVED.
[2019-08-19] MEDS ORDERED: DILTIAZEM HCL 5 MG/ML 5 ML VIAL IV STA (00:08)
[2019-08-19] MEDS ORDERED: DILTIAZEM HCL 5 MG/ML 5 ML VIAL IV PRN (00:15)
[2019-08-19] MEDS ORDERED: OXYBUTYNIN CHLOR5 MG PO (00:54)
[2019-08-19] MEDS ORDERED: MEGESTROL ACETA40 MG PO (00:54)
[2019-08-19] MEDS ORDERED: PROBIOTIC & AC1 EACH (00:54)
[2019-08-19] MEDS ORDERED: NAPROXEN250 MG PO (00:54)
[2019-08-19] MEDS ORDERED: FIBER LAX625 MG (00:54)
--- NOTE | 2019-08-19 02:14 | NUR ---
PT IS TRANSFERRED FROM ER ,PT IS AOX3 ..RESPIRATIONS ARE EVEN AND UNLABORED .SKIN TEAR RT AND LEFT HAND AND ELBOW .P HAS BRUISES BILATERAL LEGS .SKIN TEAR AT RT BACK PT HAS PUREWICK .FAMILY AT BEDSIDE .ORIENTED THE PT TO THE ROOM .BED AT THE LOW POSITION.CALL LIGHT WITH IN REACH .CONTINUE TO MONITOR
[2019-08-19 05:57] LABS: BASOPHILS # (AUTO) 0.1 (0.0-0.1); BASOPHILS % 0.8 % (0.0-1.0); EOSINOPHILS # (AUTO) 0.2 (0.0-0.4); EOSINOPHILS % 2.8 % (0.0-6.0); HEMATOCRIT 37.8 % (34.2-44.1); HEMOGLOBIN 12.7 g/dL (12.0-16.0); LYMPHOCYTES # (AUTO) 1.8 (1.0-3.2); LYMPHOCYTES % 23.5 % (18.0-39.1); MEAN CORPUSCULAR HEMOGLOBIN 31.5 pg (28-32); MEAN CORPUSCULAR HGB CONC 33.6 g/dL (31-35); MEAN CORPUSCULAR VOLUME 93.8 fL (81-99); MONOCYTES % 12.1 % (4.4-11.3); NEUTROPHILS # (AUTO) 4.7 (2.1-6.9); NEUTROPHILS % 60.4 % (38.7-80.0); PLATELET COUNT 224 x10e3/uL (140-360); RED BLOOD COUNT 4.03 x10e6/uL (3.6-5.1); RED CELL DISTRIBUTION WIDTH 12.7 % (11.7-14.4)
[2019-08-19 06:07] LABS: INR 1.01; PROTHROMBIN TIME 13.9 seconds (11.9-14.5)
[2019-08-19 06:08] LABS: PARTIAL THROMBOPLASTIN TIME 24.1 seconds (23.8-35.5)
[2019-08-19 06:16] LABS: ANION GAP 12.1 mmol/L (8-16); BLOOD UREA NITROGEN 14 mg/dL (7-26); BUN/CREATININE RATIO 18 (6-25); CALCIUM 10.3 mg/dL (8.4-10.2); CARBON DIOXIDE 28 mmol/L (22-29); CHLORIDE 106 mmol/L (98-107); CREATININE, SERUM 0.79 mg/dL (0.57-1.11); EST GLOMERULAR FILTRATION RATE > 60 ML/MIN (60-); GLUCOSE 196 mg/dL (74-118); POTASSIUM 3.1 mmol/L (3.5-5.1); SODIUM 143 mmol/L (136-145)
--- NOTE | 2019-08-19 06:27 | NUR ---
PT RESTING .DENIES PAIN TELE SHOWS AFIB .CALL LIGHT WITH IN REACH ,.CONTINUE TO MONITOR
--- NOTE | 2019-08-19 07:12 | NUR ---
BEDSIDE REPORT GIVEN TO THE ONCOMING NURSE
[2019-08-19 07:13] LABS: CREATINE KINASE MB 1.9 ng/mL (0-5.0)
--- NOTE | 2019-08-19 07:20 | NUR ---
PATIENT SITTING UP IN BED TALKING TO FAMILY MEMBER, NO DISTRESS NOTED. S/P FALL AT HOME. MULTIPLE SKIN TEARS AND BRUISES ALL OVER THE BODY MOSTLY TO LEFT SIDE. TELEMETRY BOX IN PLACE. BED IN LOWER POSITION, CALL LIGHT AT REACH.
--- NOTE | 2019-08-19 08:11 | Diagnostic Imaging Report ---
EXAMINATION: CHEST SINGLE (PORTABLE) INDICATION: ^AMS ^[id number] COMPARISON: 08/18/2019 FINDINGS: AP view TUBES and LINES: None. LUNGS: There is a new right upper lobe opacity likely atelectasis. There is no evidence of pneumonia or pulmonary edema. PLEURA: No pleural effusion or pneumothorax. HEART AND MEDIASTINUM: The cardiomediastinal silhouette is unremarkable. BONES AND SOFT TISSUES: No acute osseous lesion. Soft tissues are unremarkable. UPPER ABDOMEN: No free air under the diaphragm. IMPRESSION: New right upper lobe opacity likely atelectasis Signed by: Allen Everett MD on 08/19/2019 8:08 AM
[2019-08-19] MEDS ORDERED: POTASSIUM CHLORIDE 10MEQ EA PO ONE ×2 (09:30→11:00)
[2019-08-19] MEDS: HYDROCHLOROTHIAZIDE 25 MG TAB PO SCH (09:49)
[2019-08-19] MEDS: AMLODIPINE BESYLATE 5 MG TAB PO SCH (09:49)
--- NOTE | 2019-08-19 11:25 | NUR ---
MD IN TO SEE PATIENT, NEW ORDERS RECEIVED.
--- NOTE | 2019-08-19 13:57 | NUR ---
WOUND CARE CONSULT FOR 89 YO FEMALE HX OF FALLS, WEAKNESS RENÉE 15 PUP STATUS AND INTERVENTIONS MODERATE AND ALTERNATING PRESSURE MATTRESS LABS: WBC-7.83 HGB_ 12.7 GLUCOSE-196 SKIN ASSESSMENT COMPLETE PATIENT PRESENTS WITH MULTIPLE SKIN TEARS /BRUISES R/T FALL LEFT ARM ELBOW PARTIAL THICKNESS WOUND WAS ABLE TO RESURFACE SKIN OVER WOUND BASE AREA MEASURES 2CM X,5CM X .1CM LEFT KNEE ABRASION SCAB 2CM X2CM RIGHT ARM 2CM X .6CM X.1CM PARTIAL THICKNESS SKIN TEAR RECOMMENDATIONS: NURSING TO CONTINUE TO MAINTAIN MODERATE PUP STATUS AND INTERVENTIONS AND ALTERNATING PRESSURE MATTRESS NURSING TO CONTINUE TO ASSIST PATIENT OUT OF BED FOR MEALS AND MUCH TOLERATED NURSING TO CONTINUE TO ASSIST PATIENT NEEDED WITH MEALS AND NUTRITIONAL SUPPLEMENTS TO ENSURE PROPER REQUIREMENTS FOR HEALING NURSING TO CONTINUE TO OFFLOAD FEET AND HEELS NEEDED WITH PILLOW SUSPENSION WHEN IN BED NURSING TO MAINTAIN TEGADERM AND STERI STRIPS TO LEFT ELBOW SKIN TEAR ONCE DRESSING RELEASES AREA SHOULD BE EPITHELIALIZED NURSING TO MAINTAIN TEGADERM AND COLLAGEN TO RIGHT ARM SKIN TEAR ONCE DRESSING RELEASES AREA SHOULD BE EPITHELIALIZED Addendum: 08/19/19 at 1409 by Ken Chanel RN Amended: Links added.
--- NOTE | 2019-08-19 15:20 | NUR ---
Visit made by the Spiritual Care Department Pastoral Visitor, Yvonne Campoverde. PV provided pastoral presence, hospitality, and supportive listening. Pastoral Visitor informed pt/family of the scope of [facility] and availability. LIZZIE KENYON [employer] Spiritual Care Department O: [phone] Pager: [phone] ([phone] calling from)
[2019-08-19] MEDS ORDERED: MEGESTROL ACETATE 40 MG TAB PO PRN (15:30)
--- NOTE | 2019-08-19 15:45 | NUR ---
PATIENT ASSISTED WITH DIAPER CHANGE, HAD A LARGE BM. REPOSITINED IN BED. CALL LIGHT AT REACH.
[2019-08-19] MEDS: LACTOBACILLUS ACIDOPHILUS CAPSULE PO SCH (17:25)
--- NOTE | 2019-08-19 19:30 | NUR ---
RECEIVED PT IN BED AOX3 .NO ACUTE DISTRESS NOTED .DENIES PAIN .CALL LIGHT WITH IN REACH .CONTINUE TO MONITOR
[2019-08-19] MEDS ORDERED: OYST-CAL-D 500MG TABLET PO SCH (21:00)
[2019-08-19] MEDS: LORATADINE 10 MG TAB PO SCH (21:03)
[2019-08-20] VITALS (8 sets, daily range): BP systolic 130–171; BP diastolic 60–78
[2019-08-20 06:31] LABS: BLOOD UREA NITROGEN 20 mg/dL (7-26); BUN/CREATININE RATIO 27 (6-25); CALCIUM 11.2 mg/dL (8.4-10.2); CARBON DIOXIDE 27 mmol/L (22-29); CHLORIDE 106 mmol/L (98-107); CREATININE, SERUM 0.75 mg/dL (0.57-1.11); EST GLOMERULAR FILTRATION RATE > 60 ML/MIN (60-); GLUCOSE 186 mg/dL (74-118); SODIUM 141 mmol/L (136-145)
--- NOTE | 2019-08-20 07:29 | NUR ---
BEDSIDE REPORT GIVEN TO THE ONCOMING NURSE
[2019-08-20] MEDS ORDERED: CHOLECALCIFEROL 1,000 UNIT TAB PO SCH (09:00)
[2019-08-20] MEDS: DULOXETINE HCL 30 MG DELAYED RELEASE PO SCH (09:22)
[2019-08-20] MEDS: AMLODIPINE BESYLATE 5 MG TAB PO SCH (09:23)
[2019-08-20] MEDS: OXYBUTYNIN CHLORIDE 5 MG TAB PO SCH (09:23)
[2019-08-20] MEDS: HYDROCHLOROTHIAZIDE 25 MG TAB PO SCH (09:23)
[2019-08-20] MEDS: LACTOBACILLUS ACIDOPHILUS CAPSULE PO SCH ×2 (09:24→16:46)
[2019-08-20] MEDS ORDERED: CEFEPIME HCL 1 GM VIAL IV SCH (12:00)
[2019-08-20] MEDS: CEFEPIME 1GM/NS 0.9% 50 ML 50 ML IV SCH (13:13)
[2019-08-20] MEDS: METOPROLOL TARTRATE 25 MG TAB PO SCH ×2 (13:14→16:44)
[2019-08-20] MEDS ORDERED: SODIUM CHLORIDE 0.9% 250ML 250 ML ONE (13:18)
--- NOTE | 2019-08-20 16:25 | NUR ---
SPOKE WITH MAGGIE AT [facility], THEY HAVE FINALLY RECEIVED THE FAX AND WILL REVIEW AND CALL ME WITH MOT IN AM.
--- NOTE | 2019-08-20 19:38 | Consultation ---
DATE OF CONSULTATION: 08/20/2019 Cardiac Consultation REASON FOR CONSULTATION: Paroxysmal atrial fibrillation. HISTORY OF PRESENT ILLNESS: An 89-year-old lady, who is in her usual status of health. She was relatively active and independent. She does have chronic low back pain, very severe with radiculopathy. In May 2019, she had L3-L4 laminectomy. She did well early after surgery, but since the beginning of July and all the way to now, she is unable to walk as she cannot hold her legs. She is very weak. She is bed ridden and she cannot do any activity. Her life totally changed. She is also hypertensive. Regardless, the patient's condition deteriorate, she become bed ridden. She does have easy bruising on her leg. She is having repeated falls. She is debilitated and her life style totally changed. She came to the emergency room with weakness and worsening status. Of note, as per patient and her daughter, she is in bed. She is leaning to the right. Her neck is tilted to the right and her legs she cannot hold them. She is incontinent to urine. She can control her bowel movements. Following admission, it was noted the patient had an episode of atrial fibrillation, converted spontaneously to normal sinus rhythm. Cardiac consultation is obtained. Cardiac-duong, there is no angina. No orthopnea, paroxysmal nocturnal dyspnea. No prior syncope or presyncope or atrial fibrillation or sinus arrhythmias. In fact, the patient tolerated her surgery nicely in May 2019. REVIEW OF SYSTEMS: GENERAL: No fever, no chills, debility, weight loss, poor appetite, and worsening condition. PULMONARY: No cough. No hemoptysis. No pleuritic chest pain. No respiratory distress. CARDIAC: As per above. GI: Constipation. No hematemesis. No melena. : Incontinence of urine. MUSCULOSKELETAL: Low back pain, weakness, unable to move her legs becoming debilitated, bedridden. Her body is tilted. She has sleep and her neck tilted to the right side and her activities are miserable. SKIN: Easy bruising. Her skin is like a paper and she would bleed everywhere. ENDOCRINE: No diabetes mellitus. PSYCHIATRIC: She is not depressed, but she is unhappy about her situation. No suicidal ideation. HEMATOLOGY: Easy bruising and bleeding. SOCIAL HISTORY: She is nonsmoker and non-alcohol drinker. HOME MEDICATIONS: Include: 1. Amlodipine 2.5 mg a day. 2. Hydrochlorothiazide 12.5 mg a day. 3. Cymbalta. 4. Calcium carbonate. 5. Vitamin D3. 6. Megestrol. 7. Oxybutynin. ALLERGIES: NONE. PAST MEDICAL HISTORY: 1. L3-L4 laminectomy in May 2019. 2. Hypertension. PAST SURGICAL HISTORY: 1. Right hip replacement. 2. Hysterectomy. FAMILY HISTORY: Father in his 70s, questionable cause of . Mother of old age in her late 90s. She lost all her 11 siblings to various causes, but no premature coronary artery disease. Two healthy daughters. PHYSICAL EXAMINATION: VITAL SIGNS: Height of 5 feet 2 inches, weight of 141 pounds, blood pressure 130/60, heart rate of 80, respiratory rate of 18, afebrile. HEENT: Pupils are reactive. NECK: No elevation of jugular venous pulsation. No bruit. CHEST: Decreased air entry. Decreased lung expansion. HEART: PMI in 5th left intercostal space. Normal first and second heart sounds with soft ejection systolic murmur. ABDOMEN: Soft with no organomegaly. No abdominal bruits. Scar of previous hysterectomy is noted. EXTREMITIES: Both lower extremities showed multiple scratches and bruises and evidence of prior fall over the left knee with small hematoma. NEUROLOGIC: Marked weakness of the lower extremities, barely she can move them. LABORATORY DATA: Sodium of 141, potassium of 4, BUN 20, creatinine of 0.75. BNP of 112, calcium is 12.2. CT brain, no acute changes. Chest x-ray, no cardiomegaly, no pulmonary edema. IMPRESSION AND PLAN: 1. Debility. 2. The patient becoming nonambulatory. 3. Weakness. 4. Paroxysmal atrial fibrillation. 5. Hypertension. 6. Status post laminectomy. 7. Marked weakness of the lower extremities. 8. Skin bruises and scratches, both lower extremities. From a cardiac point of view, small dose of beta-jada. Aspirin and Lovenox for deep venous thrombosis prophylaxis. We discussed the natural history of atrial fibrillation. For the time being, we will hold on anticoagulation. The patient needs to have workup for her debility and her weakness. I will order an MRI of her back. I will ask Neurology to come see her in consultation. We will repeat her labs including her calcium tomorrow. We will follow the patient's progression with you. MD NATALIA Brown/JAQUELIEN /[id number]
[2019-08-20] MEDS ORDERED: IOPAMIDOL 370 MG/ML 200 ML INFUS..BTL INJ ONE (19:45)
[2019-08-20] MEDS ORDERED: SODIUM CHLORIDE 0.9% 100 ML ONE (19:45)
--- NOTE | 2019-08-20 20:02 | NUR ---
RECEIVED PT IN BED AOX3 .RESPIRATIONS ARE EVEN AND UNLABORED .CALL LIGHT WITH IN REACH.CONTINUE TO MONITOR
--- NOTE | 2019-08-20 20:13 | Diagnostic Imaging Report ---
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 Signed by: Dr. Micaela Celeste M.D. on 08/20/2019 8:19 PM ORIGINAL REPORT EXAMINATION: CT angiogram of the [place] and neck with contrast CLINICAL HISTORY: Weakness, falls COMPARISON: Head CT 08/18/2019 TECHNIQUE: The head and neck was scanned utilizing a multidetector helical scanner from the thoracic inlet to the vertex after the I.V contrast administration of 100 mL of Isovue-370. Multiplanar sagittal and coronal reconstructions were performed as well. For optimization of of anatomic evaluation, multi-planar reconstructions, maximum intensity projections, and advanced 3D off-line post-processing was obtained and performed on a dedicated stand-alone workstation under the direct supervision of the interpreting physician. Dose modulation, iterative reconstruction, and/or weight based adjustment of the mA/kV was utilized to reduce the radiation dose to as low as reasonably achievable. FINDINGS: The are no areas of abnormal density or enhancement in the brain. There is no mass, hemorrhage or extra-axial fluid collection. The CSF containing spaces are normal in size, position and configuration. CT ANGIOGRAM OF THE [place]: The internal carotid artery segments as well as the middle cerebral and anterior cerebral arteries are normal in caliber. Lower density/opacification of the left intracranial vertebral artery without definite occlusion or filling defect, this may be the result of area of stenoses seen in the cervical segment, see below. Otherwise the vertebro-basilar circulation is normal. No vascular malformation or aneurysmal dilatation is seen. The draining venous structures are normal and patent. Anatomic variation: Anterior Communicating Artery: Patent Posterior Communicating Arteries: Patent bilaterally Vertebral arteries: The right is dominant CT ANGIOGRAM OF THE NECK: If present, stenosis of the carotid bulbs is measured based on NASCET criteria i.e area of maximum stenosis compared to the cervical ICA distal to the bulb. The origin of the vessels is patent bilaterally. Right Carotid Artery: The common carotid, internal and external carotid arteries at the level of the neck are normal in caliber, and patent, no evidence of stenoses. Left carotid artery: The common carotid, internal and external carotid arteries at the level of the neck are normal in caliber, and patent, no evidence of stenoses. Vertebral Arteries: Focal area of high grade stenoses of the left vertebral artery in the lower neck (V1 segment), with mostly circumferential soft plaque. Otherwise both are normal in morphology and caliber. The right is dominant. No other significant stenosis is seen. IMPRESSION: 1. 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 2. Poor opacification of the intracranial left vertebral artery, which may be the result of above mentioned stenoses. 3. Otherwise unremarkable CT angiogram of the head and neck, particularly no large vessel occlusion or hemodynamically significant stenosis is seen in the carotid arteries. Signed by: Dr. Micaela Celeste M.D. on 08/20/2019 8:11 PM
[2019-08-20] MEDS: LORATADINE 10 MG TAB PO SCH (21:26)
[2019-08-21] VITALS (8 sets, daily range): BP systolic 130–140; BP diastolic 60–80
[2019-08-21 06:18] LABS: BASOPHILS # (AUTO) 0.1 (0.0-0.1); BASOPHILS % 0.8 % (0.0-1.0); EOSINOPHILS # (AUTO) 0.3 (0.0-0.4); EOSINOPHILS % 3.3 % (0.0-6.0); HEMATOCRIT 37.8 % (34.2-44.1); HEMOGLOBIN 12.7 g/dL (12.0-16.0); LYMPHOCYTES # (AUTO) 2.8 (1.0-3.2); LYMPHOCYTES % 29.9 % (18.0-39.1); MEAN CORPUSCULAR HEMOGLOBIN 32.2 pg (28-32); MEAN CORPUSCULAR HGB CONC 33.6 g/dL (31-35); MEAN CORPUSCULAR VOLUME 95.7 fL (81-99); MONOCYTES # (AUTO) 0.9 (0.2-0.8); MONOCYTES % 9.3 % (4.4-11.3); NEUTROPHILS # (AUTO) 5.3 (2.1-6.9); NEUTROPHILS % 55.9 % (38.7-80.0); PLATELET COUNT 232 x10e3/uL (140-360); RED BLOOD COUNT 3.95 x10e6/uL (3.6-5.1); RED CELL DISTRIBUTION WIDTH 13.2 % (11.7-14.4)
[2019-08-21 06:36] LABS: ALANINE AMINOTRANSFERASE 17 IU/L (0-55); ALBUMIN 2.8 g/dL (3.5-5.0); ALBUMIN/GLOBULIN RATIO 0.8 (0.8-2.0); ALKALINE PHOSPHATASE 28 IU/L (40-150); ANION GAP 11.9 mmol/L (8-16); BLOOD UREA NITROGEN 22 mg/dL (7-26); BUN/CREATININE RATIO 32 (6-25); CALCIUM 10.3 mg/dL (8.4-10.2); CARBON DIOXIDE 24 mmol/L (22-29); CHLORIDE 107 mmol/L (98-107); CHOL/HDL RATIO 5.2 (3.0-3.6); CHOLESTEROL 204 MD/DL (0-199); CREATININE, SERUM 0.69 mg/dL (0.57-1.11); EST GLOMERULAR FILTRATION RATE > 60 ML/MIN (60-); GLUCOSE 199 mg/dL (74-118); HDL CHOLESTEROL 39 MG/DL (40-60); LDL CHOLESTEROL 139 MG/DL (60-130); POTASSIUM 3.9 mmol/L (3.5-5.1); SODIUM 139 mmol/L (136-145); TRIGLYCERIDES 128 MG/DL (0-149)
--- NOTE | 2019-08-21 06:43 | NUR ---
PT RESTED DURING THE NIGHT .DENIES PAIN .NO ACUTE DISTRESS NOTED .CALL LIGHT WITH IN REACH .CONTINUE TO MONITOR
[2019-08-21 06:57] LABS: THYROID STIMULATING HORMONE 2.862 uIU/mL (0.350-4.940)
--- NOTE | 2019-08-21 07:00 | NUR ---
BEDSIDE REPORT GIVEN TO THE ONCOMING NURSE
[2019-08-21] MEDS: ASPIRIN 81 MG ENTERIC COATED PO SCH (09:00)
[2019-08-21] MEDS: DULOXETINE HCL 30 MG DELAYED RELEASE PO SCH (09:00)
[2019-08-21] MEDS: METOPROLOL TARTRATE 25 MG TAB PO SCH ×2 (09:00→17:07)
[2019-08-21] MEDS: OXYBUTYNIN CHLORIDE 5 MG TAB PO SCH (09:00)
[2019-08-21] MEDS: LACTOBACILLUS ACIDOPHILUS CAPSULE PO SCH ×2 (09:00→17:07)
[2019-08-21] MEDS: AMLODIPINE BESYLATE 5 MG TAB PO SCH (09:00)
[2019-08-21 10:08] LABS: FREE THYROXINE INDEX 2.5808 (1.4-3.8); THYROID STIMULATING HORMONE 2.822 uIU/mL (0.350-4.940)
[2019-08-21] MEDS: CARBIDOPA/LEVODOPA 25/100 TAB PO SCH ×3 (11:04→21:03)
--- NOTE | 2019-08-21 11:49 | NUR ---
DETENTION FACILITY DISCHARGE INFORMATION PATIENT HAS BEEN ACCEPTED TO: [facility] NAME: [facility] ADDRESS: [address] [facility] [id number] ACCEPTING MD: MIGUEL ROOM:206 NURSE CALL REPORT TO: [phone] IMM SIGNED AND OBTAINED (if applicable): IMM THE FOLLOWING DOCUMENTS MUST ACCOMPANY PATIENT FOR TRANSFER: COPIED CHART: YES
[2019-08-21] MEDS: CEFEPIME 1GM/NS 0.9% 50 ML 50 ML IV SCH ×2 (13:00)
--- NOTE | 2019-08-21 13:08 | NUR ---
EDUCATED ABOUT IMM, SIGNED, FILED IN CHART, WITH COPY LEFT WITH FAMILY AT BEDSIDE. OBTAINED VERBAL FROM DAUGHTER MS. ELLIS VIA PHONE.
--- NOTE | 2019-08-21 15:02 | Diagnostic Imaging Report ---
MRI SPINE LUMBAR WO HISTORY: Leg weakness COMPARISON: Lumbar spine radiographs 05/05/2019; lumbar spine MRI 05/02/2019 TECHNIQUE: Sagittal T1, sagittal T2, sagittal STIR, axial T2, coronal T2, and axial proton density weighted images of the lumbar spine were obtained without contrast. Motion artifacts obscure some details. DISCUSSION: Number of non-rib bearing lumbar vertebral bodies: 5. Alignment: Normal lordosis. Mild dextroscoliosis is centered at L2-L3. Vertebrae: No fractures, infection or neoplasm. Conus medullaris: Normal, ends at L2. Cauda equina: No masses or arachnoiditis. Posterior paraspinal muscles: Well preserved. There is mild bilateral paraspinal muscle atrophy and edema at the lumbosacral junction. Posterior incision signal changes are noted. Soft tissues: Small T2 hyperintense lesion in the right kidney is likely a cyst. Mild to moderate multilevel disc degeneration, most prominent at L5-S1, has not significantly change. T12-L1: Disc bulge without significant canal or foraminal stenosis. L1-L2: Disc bulge without significant canal or foraminal stenosis. L2-L3: There is minimal retrolisthesis of L2 on L3. Asymmetric disc bulge towards the right causes mild canal stenosis, slightly effaces the right lateral recess, and abuts the descending right L3 nerve root. No significant foraminal stenosis. L3-L4: Left hemilaminectomy changes are present. There is minimal retrolisthesis of L3 on L4. No significant central canal stenosis. Approximately 6 mm left subarticular disc extrusion (with 6 mm inferior migration) slightly effaces the left lateral recess and abuts the descending left L4 nerve root. Mild bilateral foraminal stenoses due to disc bulge and facet arthrosis. There is a new, approximately 1.3 cm paraspinal synovial cyst along the posterior left L3-L4 facet joint. L4-L5: There is minimal retrolisthesis of L4 on L5. Mild to moderate canal stenosis due to disc bulge and ligamentum flavum thickening. Both lateral recesses are slightly effaced. Mild right foraminal stenosis due to asymmetry of the disc bulge and facet arthrosis. No significant left foraminal stenosis. L5-S1: There is minimal retrolisthesis of L5 on S1. Mild to moderate canal stenosis due to disc bulge and ligamentum flavum thickening. Both lateral recesses are slightly effaced, right slightly greater than left. Mild to moderate bilateral foraminal stenoses due to disc bulge and facet arthrosis. IMPRESSION: 1. No significant change in mild to moderate multilevel disc degeneration, most prominent at L5-S1. 2. Left hemilaminectomy changes at L3-L4. 3. Multilevel degenerative canal stenoses - mild at L2-L3; mild to moderate at L4-L5 and L5-S1. 4. Approximately 6 mm left L3-L4 subarticular disc extrusion (with 6 mm inferior migration) abuts the descending left L4 nerve root. 5. Multilevel degenerative foraminal stenoses - mild to moderate bilaterally at L5-S1. 6. New 1.3 cm paraspinal synovial cyst along the posterior left L3-L4 facet joint may suggest local synovitis. Signed by: Dr. Ernie Farfan M.D. on 08/21/2019 2:59 PM
--- NOTE | 2019-08-21 16:26 | Consultation ---
DATE OF CONSULTATION: Neurology Consultation. HISTORY OF PRESENT ILLNESS: Mrs. Cheryl Roa was seeing patient for increased falls over the past three months and increased instability. Mrs. Roa is an 89-year-old female, who was brought in by her daughter for increasing falls and difficulty with ambulation. She is noted to have an irregular heart rate on admission, low potassium. The patient is verbalizing unresponsive. Speech is slow and purposeful, but appropriate. She states that she does have increasing imbalance and difficulty with control and ambulation and care for herself, but this has been going on for a while. She has not been driving for at least three months due to these issues. She does not really cook for herself or shop for herself either. She has a history of head trauma with a history of seizures and strokes. She lost her about eight years ago and has been depressed since then taking antidepressants for that. REVIEW OF SYSTEMS: Reports a fall, sciatic pain in the leg, neuropathic pain in bilateral lower extremities. Otherwise, 14-point review of systems is negative. PHYSICAL EXAMINATION: VITAL SIGNS: Her vital signs show a temperature of 96.4. Heart rate of 102, but regular at this time. Blood pressure 140/80. HEENT: Her extraocular muscles are intact. Blink is normal, normal frequency and pupils are reactive. Speech is slow. It looks bradyphoneic, bradykinetic, but intact and oriented as well as lucid and fluent. There is no nuchal rigidity. MUSCULOSKELETAL: There is increased tone in the arms and legs. She has positive spontaneous movements. She has some waxy flexibility on her exam. Her reflexes are diminished. She does have upgoing toes bilaterally in the lower extremities. CARDIOVASCULAR: Regular rate and rhythm at this time. PULMONARY: Clear to auscultation. ABDOMEN: Soft and nontender. EXTREMITIES: There are no tremors and there is no ataxia on exam. ASSESSMENT AND PLAN: I am seeing Mrs. Cheryl Roa for falls. She has a lot of symptomatology. She has Parkinson disease including increased rigidity, increased muscle tone, decreased spontaneous movements, a bit of a masked face and low speech, but her sense of smell is intact and she has no tremors. So overall, she does have the entire constellation of symptoms, so we would expect Parkinson disease, she may have a parkinsonian disorder. I discussed the options of doing a scan with the family and recommended PT, OT, rehabilitation, speech therapy as well as therapy as an outpatient option for continued care. We will start a trial of Sinemet with any hallucinations, we will continue Sinemet until we continues as an outpatient initiate Azilect. Otherwise, we will just day-by-day as we go forward. MD TABITHA SALGUERO/JAQUELINE /[id number]
[2019-08-21] MEDS ORDERED: ENOXAPARIN 30 MG/0.3 ML SYR SC SCH (17:00)
--- NOTE | 2019-08-21 19:10 | NUR ---
RECEIVED THE PATIENT IN REPORT.LYEING IN THE BED.STABLE CONDITION.
[2019-08-21] MEDS: LORATADINE 10 MG TAB PO SCH (21:03)
[2019-08-22] VITALS: BP 145/64
[2019-08-22] MEDS: CEFEPIME 1GM/NS 0.9% 50 ML 50 ML IV SCH (01:03)
--- NOTE | 2019-08-22 01:04 | NUR ---
NEW IV STARTED TO R.FOR ARM#22 G.PATENT.
--- NOTE | 2019-08-22 03:00 | NUR ---
RESTING COMFORTABLY IN THE BED.PUREWICK IN PLACE. NO PAIN VOICED.BED LOCKED AND IN LOWEST POSITION.PHONE AND CALL LIGHT WITHIN REACH.INSTRUCTED TO CALL FOR ASSISTANCE NEEDED.
[2019-08-22 04:00] VITALS: BP 154/74
--- NOTE | 2019-08-22 04:30 | NUR ---
Patient is confused.assisted to contact daughter.talked to her.keep monitor the patient.
--- NOTE | 2019-08-22 07:07 | NUR ---
Bed side shift report given to oncoming Rn.stable condition.
[2019-08-22 08:00] VITALS: BP 133/63
[2019-08-22 08:24] VITALS: BP 133/63
[2019-08-22] MEDS ORDERED: ACETAMINOPHEN 325 MG TAB PO PRN (09:00)
[2019-08-22] MEDS: ASPIRIN 81 MG ENTERIC COATED PO SCH (09:06)
[2019-08-22] MEDS: DULOXETINE HCL 30 MG DELAYED RELEASE PO SCH (09:07)
[2019-08-22] MEDS: OXYBUTYNIN CHLORIDE 5 MG TAB PO SCH (09:07)
[2019-08-22] MEDS: LACTOBACILLUS ACIDOPHILUS CAPSULE PO SCH (09:08)
[2019-08-22] MEDS: METOPROLOL TARTRATE 25 MG TAB PO SCH (09:08)
--- NOTE | 2019-08-22 10:14 | NUR ---
s: patient reacted poorly to low dose sinement family wishes to discontinue it vs : 97.1 78 145 / 64 aox2 rrr cta abd soft calm eomi no occuloparesis speech clear but slow incrased tone and waxy flexibility in arms no tremor a/p parkinsonsims- not tolerant of sienemt - dc sinemet increase cymbalta CT DEBRA scan
[2019-08-22] MEDS ORDERED: CEFTRIAXONE SOD 1 GM/NS 50 ML 50 ML IV SCH (10:30)
[2019-08-22 11:01] VITALS: BP 143/61
--- NOTE | 2019-08-22 13:00 | NUR ---
Pt discharged to [facility] at this time. Pt is aox2 and able to verbalize needs. 0 s/s of acute distress noted. family at the bedside. Report called to Sveta at [facility].
[2019-08-22] MEDS ORDERED: AMOXICILLIN/CLAVULANATE K 500 MG TAB PO SCH (21:00)
[2019-08-22] MEDS ORDERED: AMOXICILLIN/CLAVULANATE K 875 MG TAB PO SCH (21:00)
[2019-08-22] MEDS ORDERED: DULOXETINE HCL 30 MG DELAYED RELEASE PO SCH (21:00)
[2019-08-23] MEDS ORDERED: DULOXETINE HCL 20 MG DELAYED RELEASE PO SCH (09:00)
== END 2019-08-22 13:01 | DRG 308 ==
LOC: ER 16:37 → ERHOLD 20:47 → MED/SURG3 23:50
DX: I48.0 Paroxysmal atrial fibrillation (principal); G93.41 Metabolic encephalopathy; N39.0 Urinary tract infection, site not specified; I10 Essential (primary) hypertension; M54.10 Radiculopathy, site unspecified; Z74.01 Bed confinement status; R32 Unspecified urinary incontinence; G20 Parkinson's disease; Z96.641 Presence of right artificial hip joint; R26.81 Unsteadiness on feet; F32.9 Major depressive disorder, single episode, unspecified
CPT/HCPCS: 36415; 70450; 70496; 70498; 71045; 72148; 80048; 80053; 80061; 81001; 82140; 82550; 82553; 83735; 83880; 84436; 84443; 84479; 84484; 85025; 85610; 85651; 85730; 86140; 87086; 87186; 93005; 93306; 97139; 99284; J0692; J0696; J1650; J7040; J7050; Q9967